=== PATIENT | male | born 1960 | race American Indian/Alaskan Native ===

== ENCOUNTER 2016-08-08 08:58 | Emergency (ER) | payer OTHER ==
--- NOTE | 2016-08-08 12:31 | XRay Report ---
LEFT SHOULDER: History: Left shoulder pain. Routine views demonstrate normal bony and soft tissue structures with normal joint alignment of the shoulder. IMPRESSION: Normal study.
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
[2016-08-08 14:43] VITALS: BP 129/96
== END 2016-08-08 14:42 | disposition home or self-care (01) ==
LOC: ED 08:58
DX: S39.012A Strain of muscle, fascia and tendon of lower back, initial encounter (principal); S46.912A Strain of unspecified muscle, fascia and tendon at shoulder and upper arm level, left arm, initial encounter; R07.89 Other chest pain; I10 Essential (primary) hypertension; K21.9 Gastro-esophageal reflux disease without esophagitis; Z79.82 Long term (current) use of aspirin; V89.2XXA Person injured in unspecified motor-vehicle accident, traffic, initial encounter; Y93.89 Activity, other specified; Y99.9 Unspecified external cause status; Y92.410 Unspecified street and highway as the place of occurrence of the external cause
CPT/HCPCS: 36415; 72100; 84484; 93005; 93010

== ENCOUNTER 2020-12-16 08:34 | Emergency (ER) | payer BC, OTHER ==
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
--- NOTE | 2020-12-16 09:47 | XRay Report ---
LEFT KNEE 3 VIEWS INDICATION: pain and swelling x 4 weeks. COMPARISON: None. IMPRESSION: No acute osseous or soft tissue abnormality. Mild medial compartment joint space narr owing, mild tibial spine spurring and mild retropatellar spurring are identified. Small joint effusio n is suggested on the lateral image. Signer Name: Grzegorz Stein Jr, MD Signed: 12/16/2020 9:43 AM Workstation Name: [id number]
[2020-12-16 10:29] LABS: Basophils % (Auto) 0.4 % (0.0-1.8); Eosinophils % (Auto) 0.5 % (0.0-4.3); Hematocrit 44.9 % (35.5-45.6); Hemoglobin 15.7 gm/dl (11.8-15.2); Lymphocytes # (Auto) 1.5 K/mm3 (1.2-5.4); Mean Corpuscular HGB Conc 35 % (32-34); Mean Corpuscular Volume 94 fl (84-94); Monocytes # (Auto) 0.7 K/mm3 (0.0-0.8); Monocytes % (Auto) 8.1 % (0.0-7.3); Platelet Count 187 K/mm3 (140-440); Red Blood Count 4.77 M/mm3 (3.65-5.03); Red Cell Distribution Width 13.9 % (13.2-15.2)
[2020-12-16 10:50] LABS: Alanine Aminotransferase 15 units/L (7-56); Albumin 4.1 g/dL (3.9-5); BUN/Creatinine Ratio 13; Blood Urea Nitrogen 14 mg/dL (9-20); Calcium 8.9 mg/dL (8.4-10.2); Hemolysis Index 6
[2020-12-16] MEDS ORDERED: POTASSIUM CHLORIDE ER 20 MEQ TAB PO ONE (11:24)
[2020-12-16] MEDS ORDERED: ONDANSETRON 4 MG/2 ML INJ IV ONE (15:51)
[2020-12-16] MEDS ORDERED: MORPHINE 2 MG/1 ML INJ IV ONE (15:51)
--- NOTE | 2020-12-16 16:55 | XRay Report ---
CHEST 1 VIEW 12/16/2020 3:49 PM INDICATION / CLINICAL INFORMATION: hypertension. COMPARISON: None available. FINDINGS: SUPPORT DEVICES: None. HEART / MEDIASTINUM: No significant abnormality. LUNGS / PLEURA: No significant pulmonary or pleural abnormality. No pneumothorax. ADDITIONAL FINDINGS: No significant additional findings. IMPRESSION: 1. No acute findings. Signer Name: Andre Alexandre MD Signed: 12/16/2020 4:50 PM Workstation Name: Dr Sears [id number]
[2020-12-16] MEDS ORDERED: hydrALAZINE 20 MG/1 ML INJ IV ONE (17:54)
--- NOTE | 2020-12-16 18:42 | Emergency Department Report ---
ED General Adult HPI - General Chief complaint: Extremity Problem,Nontraumatic Stated complaint: PAIN IN LEFT LEG Time Seen by Provider: 12/16/20 09:07 Source: patient Mode of arrival: Ambulatory Limitations: No Limitations - History of Present Illness Initial comments: This is a 60-year-old male who decided to come to the emergency department evaluation of left knee pain and swelling for approximately 2 days. Patient has no prior history of gout or diagnosed arthritis. He does state that occasionally he has problems with his great toe particularly of the right foot and the small toe of the right foot as well but nothing acute. He does not report any fever or chills. He has had no prior trauma of his knee or previous surgery. Patient does admit to noncompliance with his blood pressure medicine. He denies any other chronic medical problems. -: Gradual, days(s) Location: left, lower extremity Radiation: non-radiation Severity scale (0 -10): 5 Quality: stabbing Consistency: constant Improves with: none Worsens with: movement Associated Symptoms: denies other symptoms Treatments Prior to Arrival: none - Related Data Home Medications Medication Instructions Recorded Confirmed Last Taken Aspirin [Aspirin BABY CHEW TAB] 81 mg PO QDAY 11/23/14 11/23/14 Unknown Furosemide 40 mg PO DAILY 11/23/14 11/23/14 Unknown NIFEdipine [NIFEdipine ER] 90 mg PO QDAY 11/23/14 11/23/14 Unknown Omeprazole [PriLOSEC] 40 mg PO DAILY 11/23/14 11/23/14 Unknown Potassium Chloride [Klor-Con] 20 meq PO QDAY 11/23/14 11/23/14 Unknown Previous Rx's Medication Instructions Recorded Last Taken Type Ibuprofen [Motrin] 800 mg PO Q8H PRN #30 tablet 12/13/14 Unknown Rx Cyclobenzaprine [Flexeril 10 MG 10 mg PO TID PRN #30 tablet 08/08/16 Unknown Rx TAB] Naproxen [Naprosyn] 500 mg PO BID #30 tablet 08/08/16 Unknown Rx HYDROcodone/APAP 5-325 [[place] 1 each PO Q6HR PRN #14 tablet 12/16/20 Unknown Rx 5/325] Losartan [Cozaar] 50 mg PO QDAY #30 tablet 12/16/20 Unknown Rx amLODIPine 10 mg PO DAILY #30 tab 12/16/20 Unknown Rx Allergies Allergy/AdvReac Type Severity Reaction Status Date / Time No Known Allergies Allergy Verified 08/08/16 09:22 ED Review of Systems ROS: Stated complaint: PAIN IN LEFT LEG Other details as noted in HPI Constitutional: denies: chills, fever Eyes: denies: eye pain, vision change ENT: denies: ear pain, throat pain Respiratory: denies: cough, shortness of breath, wheezing Cardiovascular: denies: chest pain, palpitations Endocrine: no symptoms reported Gastrointestinal: denies: abdominal pain, nausea, diarrhea Genitourinary: denies: urgency, dysuria Musculoskeletal: denies: back pain, joint swelling, arthralgia Skin: denies: rash, lesions Neurological: denies: headache, weakness, paresthesias Psychiatric: denies: anxiety, depression Hematological/Lymphatic: denies: easy bleeding, easy bruising ED Past Medical Hx - Past Medical History Previous Medical History?: Yes Hx Hypertension: Yes Hx GERD: Yes - Social History Smoking Status: Never Smoker Substance Use Type: None - Medications Home Medications: Home Medications Medication Instructions Recorded Confirmed Last Taken Type Aspirin [Aspirin BABY CHEW TAB] 81 mg PO QDAY 11/23/14 11/23/14 Unknown History Furosemide 40 mg PO DAILY 11/23/14 11/23/14 Unknown History NIFEdipine [NIFEdipine ER] 90 mg PO QDAY 11/23/14 11/23/14 Unknown History Omeprazole [PriLOSEC] 40 mg PO DAILY 11/23/14 11/23/14 Unknown History Potassium Chloride [Klor-Con] 20 meq PO QDAY 11/23/14 11/23/14 Unknown History Ibuprofen [Motrin] 800 mg PO Q8H PRN #30 tablet 12/13/14 Unknown Rx Cyclobenzaprine [Flexeril 10 MG 10 mg PO TID PRN #30 tablet 08/08/16 Unknown Rx TAB] Naproxen [Naprosyn] 500 mg PO BID #30 tablet 08/08/16 Unknown Rx HYDROcodone/APAP 5-325 [[place] 1 each PO Q6HR PRN #14 tablet 12/16/20 Unknown Rx 5/325] Losartan [Cozaar] 50 mg PO QDAY #30 tablet 12/16/20 Unknown Rx amLODIPine 10 mg PO DAILY #30 tab 12/16/20 Unknown Rx ED Physical Exam - General Limitations: No Limitations General appearance: alert, in no apparent distress - Head Head exam: Present: atraumatic, normocephalic - Eye Eye exam: Present: normal appearance. Absent: scleral icterus - ENT ENT exam: Present: mucous membranes moist - Neck Neck exam: Present: normal inspection - Respiratory Respiratory exam: Present: normal lung sounds bilaterally. Absent: respiratory distress - Cardiovascular Cardiovascular Exam: Present: regular rate, normal rhythm. Absent: systolic murmur, diastolic murmur, rubs, gallop - GI/Abdominal GI/Abdominal exam: Present: soft, normal bowel sounds. Absent: distended, tenderness, guarding, rebound - Rectal Rectal exam: Present: deferred - Extremities Exam Extremities exam: Present: full ROM, other (Mild erythema and suprapatella effusion.) - Back Exam Back exam: Present: normal inspection - Neurological Exam Neurological exam: Present: alert, oriented X3, CN II-XII intact. Absent: motor sensory deficit - Psychiatric Psychiatric exam: Present: normal affect, normal mood - Skin Skin exam: Present: warm, dry, intact, normal color. Absent: rash ED Course Vital Signs 12/16/20 12/16/20 12/16/20 09:04 09:06 12:53 Temperature 98.7 F Pulse Rate 87 Respiratory 14 Rate Blood Pressure 240/138 Blood Pressure 241/137 245/153 [Left] O2 Sat by Pulse 98 Oximetry 12/16/20 12/16/20 15:09 16:09 Temperature Pulse Rate 76 74 Respiratory Rate Blood Pressure 214/140 206/143 Blood Pressure [Left] O2 Sat by Pulse Oximetry - Reevaluation(s) Reevaluation #1: Patient was given labetalol x2 and hydralazine for blood pressure control. He repeatedly asked the nurse for discharge. The importance of blood pressure management has been emphasized to him. To place him on steroids or indomethacin would probably not be advisable in the face of severely uncontrolled hypertension. He will be given medication for his blood pressure and analgesia. He is referred to the local primary care clinic for follow-up. 12/16/20 18:49 - Joint Aspiration/Injection Consent Obtained: verbal consent Time Out Performed: No Indications: R/O crystal arthropathy Side of Body: left Joint Aspirated: knee Ultrasound Guidance: No Needle Size Used: Other (19) Fluid Obtained: bloody Total Fluid Obtained (mls): 10 Patient Tolerated Procedure: well Complications: none ED Medical Decision Making - Lab Data Result diagrams: 12/16/20 09:51 12/16/20 09:51 Laboratory Results - last 24 hr 12/16/20 12/16/20 12/16/20 09:51 09:51 15:57 WBC 8.8 RBC 4.77 Hgb 15.7 H Hct 44.9 MCV 94 MCH 33 H MCHC 35 H RDW 13.9 Plt Count 187 Lymph % (Auto) 17.0 [place] % (Auto) 8.1 H Eos % (Auto) 0.5 Baso % (Auto) 0.4 Lymph # (Auto) 1.5 [place] # (Auto) 0.7 Eos # (Auto) 0.0 Baso # (Auto) 0.0 Seg Neutrophils % 74.0 H Seg Neutrophils # 6.5 Sodium 142 Potassium 2.9 L* Chloride 97.0 L Carbon Dioxide 37 H Anion Gap 11 BUN 14 Creatinine 1.1 Estimated GFR > 60 BUN/Creatinine Ratio 13 Glucose 105 H Uric Acid 8.7 H Calcium 8.9 Total Bilirubin 1.20 AST 19 ALT 15 Alkaline Phosphatase 88 Total Protein 7.3 Albumin 4.1 Albumin/Globulin Ratio 1.3 Fluid Type Fluid Color Fluid Appearance Fluid WBC Fluid RBC 12/16/20 16:25 WBC RBC Hgb Hct MCV MCH MCHC RDW Plt Count Lymph % (Auto) [place] % (Auto) Eos % (Auto) Baso % (Auto) Lymph # (Auto) [place] # (Auto) Eos # (Auto) Baso # (Auto) Seg Neutrophils % Seg Neutrophils # Sodium Potassium Chloride Carbon Dioxide Anion Gap BUN Creatinine Estimated GFR BUN/Creatinine Ratio Glucose Uric Acid Calcium Total Bilirubin AST ALT Alkaline Phosphatase Total Protein Albumin Albumin/Globulin Ratio Fluid Type Synovial Fluid Color Red Fluid Appearance Cloudy Fluid WBC 226 Fluid RBC [id number] - Radiology Data Radiology results: report reviewed (Chest x-ray and knee x-ray no acute process) Critical care attestation.: If time is entered above; I have spent that time in minutes in the direct care of this critically ill patient, excluding procedure time. ED Disposition Clinical Impression: Uncontrolled hypertension, Hypokalemia Acute gout of left knee Qualifiers: Gout etiology: unspecified cause Qualified Code(s): M10.9 - Gout, unspecified Disposition: TO HOME OR SELFCARE Is pt being admited?: No Does the pt Need Aspirin: No Condition: Stable Instructions: Hypertension (ED), Low-Purine Eating Plan, Hypertension, Adult, Clev-po-Jgby, Managing Your Hypertension, Hypokalemia Additional Instructions: You very likely have gout of your left knee. This can be treated with medication. However, gout medication will generally increase your blood pressure. We must get your blood pressure under control. I am going to give you medication for your blood pressure and something for pain. You were referred to the local primary care clinic for follow-up and further evaluation. In addition, your potassium was somewhat low. This needs follow-up. Potassium rich diet such as bananas/orange juice is recommended until he can be rechecked. This is recommended at the [facility] on Saturday. Prescriptions: amLODIPine 10 mg PO DAILY #30 tab Losartan [Cozaar] 50 mg PO QDAY #30 tablet HYDROcodone/APAP 5-325 [[place] 5/325] 1 each PO Q6HR PRN #14 tablet PRN Reason: Pain Referrals: PRIMARY CARE, [Primary Care Provider] - 3-5 Days [facility] [Provider Group] - 2-3 Days Time of Disposition: 18:57
[2020-12-16 19:12] VITALS: BP 164/93
[2020-12-16 19:13] LABS: Monocytes Body Fluid 29 %
[2021-01-05 13:44] LABS: Total Protein,Body Fluid 3.4 (15.0-45.0); pH, Body Fluid 7.3
== END 2020-12-16 19:16 | disposition home or self-care (01) ==
LOC: ED 08:34
DX: I10 Essential (primary) hypertension (principal); E87.6 Hypokalemia; M10.9 Gout, unspecified; K21.9 Gastro-esophageal reflux disease without esophagitis; Z79.899 Other long term (current) drug therapy
CPT/HCPCS: 36415; 71045; 73562; 80053; 82947; 84160; 84550; 85025; 87116; 89051; 96374; 96375; 96376; 99284; J0360; J2270; J2405